=== PATIENT | male | born 1950 | race African-American/Black ===

== ENCOUNTER 2018-05-12 10:06 | Inpatient (IN) ==
[2018-05-12] MEDS ORDERED: PHARMACY CONSULT - DOSE _____ XX SCH ×2 (11:48→17:00)
[2018-05-12] MEDS ORDERED: LASIX IVP ONE (12:05)
[2018-05-12 12:06] LABS: BASOPHILS # (AUTO) 0.1 X10^3/uL (0.0-0.1); BASOPHILS % (AUTO) 0.7 % (0.2-1.0); EOSINOPHILS # (AUTO) 0.1 x10^3/uL (0.0-0.2); HEMATOCRIT 35.3 % (42.0-54.0); HEMOGLOBIN 11.6 g/dL (13.5-18.0); LYMPHOCYTES # (AUTO) 1.8 X10^3/uL (1.3-2.9); LYMPHOCYTES % (AUTO) 14.2 % (21.0-51.0); MEAN CORPUSCULAR HEMOGLOBIN 27.8 pg (27.0-34.0); MEAN CORPUSCULAR HGB CONC 32.9 g/dL (33.0-35.0); MEAN CORPUSCULAR VOLUME 84.3 fL (80.0-100.0); MEAN PLATELET VOLUME 8.4 fL (7.4-11.0); MONOCYTES # (AUTO) 0.9 x10^3/uL (0.3-0.8); MONOCYTES % (AUTO) 7.1 % (0.0-13.0); NEUTROPHILS # (AUTO) 9.7 x10^3/uL (2.2-4.8); PLATELET COUNT 253 X10^3/uL (150.0-450.0); RED BLOOD COUNT 4.18 X10^6/uL (4.7-6.0); RED CELL DISTRIBUTION WIDTH 15.7 % (11.6-16.5); WHITE BLOOD COUNT 12.6 X10^3/uL (3.6-10.0)
[2018-05-12 12:06] LABS: BILIRUBIN,URINE NEGATIVE (NEGATIVE); BLOOD/HEMOGLOBIN,URINE 3+ (NEGATIVE); GLUCOSE, URINE NEGATIVE (NEGATIVE); KETONES,URINE NEGATIVE (NEGATIVE); LEUKOCYTE ESTERASE ,URINE 2+ (NEGATIVE); NITRITES,URINE NEGATIVE (NEGATIVE); PROTEIN,URINE 2+ (NEGATIVE); UROBILINOGEN,URINE 3+ (NORMAL)
[2018-05-12 12:11] LABS: APPEARANCE,URINE CLEAR (CLEAR); COLOR,URINE DARK YELLOW (YELLOW)
[2018-05-12] MEDS: LASIX IVP SCH ×2 (12:11→21:30)
[2018-05-12 12:15] LABS: BACTERIA,URINE TRACE /HPF (NEGATIVE); SQUAMOUS EPITHELIAL CELL,UR MODERATE /HPF (NEGATIVE)
[2018-05-12 12:20] LABS: ALANINE AMINOTRANSFERASE 18 Units/L (12-78); ALBUMIN 2.4 g/dL (3.4-5.0); ALKALINE PHOSPHATASE 90 Units/L (46-116); ASPARTATE AMINO TRANSFERASE 23 Units/L (15-37); BLOOD UREA NITROGEN 13 mg/dL (7-18); CALCIUM 9.1 mg/dL (8.5-10.1); CARBON DIOXIDE 28.3 mmol/L (21-32); CHLORIDE 99 mmol/L (98-107); COR CA(FOR HYPOALB) 10.4 mg/dL (8.5-10.1); COR NA(FOR HYPERGLY) 138 mmol/L (136-145); CREATININE 1.23 mg/dL (0.70-1.30); SODIUM 136 mmol/L (136-145); eGFR NON BLACK RACES > 60 (>60)
--- NOTE | 2018-05-12 12:23 | RAD ---
HISTORY: New onset CHF Study: AP portable chest Comparison: None Technique: AP portable chest Findings: Soft tissues bone detail are normal. Heart size is normal. The airway is normal. There is mild central vascular congestion but no interstitial or alveolar edema or findings of overt CHF IMPRESSION: 1. Mild central vascular congestion but no findings of overt CHF i.e. no pulmonary interstitial or alveolar edema or pleural effusions. Reported By:
[2018-05-12 12:41] LABS: B-TYPE NATRIURETIC PEPTIDE 838 pg/mL (0-79)
[2018-05-12] MEDS: ASPIRIN EC 81 MG PO SCH (13:58)
[2018-05-12] MEDS: ZOVIRAX VIAL 500 MG 1,000 MG in NS 250 ML IV 250 ML IV SCH ×2 (13:58→21:39)
[2018-05-12] MEDS ORDERED: NS 250 ML IV 250 ML IV ONE ×2 (13:59→16:55)
[2018-05-12 15:19] VITALS: BMI 40.1
[2018-05-12] MEDS: TOBREX DROPS AFFEYE SCH ×2 (17:09→21:31)
[2018-05-12] MEDS: ZOSYN VIAL 4.5 GRAMS 4.5 G in NS 100 ML IV + SPIKE MINIBAG* 100 ML IV SCH ×2 (17:10→21:30)
[2018-05-12] MEDS ORDERED: POTASSIUM CHL 40 MEQ/NS 0.45% 500 ML IV PRN (19:02)
[2018-05-12] MEDS ORDERED: POTASSIUM CHL 60 MEQ/NS 0.45% 500 ML IV PRN (19:02)
[2018-05-12] MEDS ORDERED: POTASSIUM CHLORIDE LIQ 20 MEQ UDC PO PRN (19:02)
[2018-05-12] MEDS ORDERED: MICRO K EXTEN CAP 10 MEQ PO PRN (19:02)
[2018-05-12] MEDS ORDERED: K-RIDER 10 MEQ/NS 100 ML 10 MEQ/100 ML BAG IV PRN (19:02)
[2018-05-12] MEDS ORDERED: KLOR-CON PO PRN (19:02)
[2018-05-12] MEDS ORDERED: MAGNESIUM SULFATE 1 GRAM/100 mL PREMIX 1 GM/100 ML BAG IV PRN (19:02)
[2018-05-12] MEDS: SNACK - Diabetic Appropriate PO SCH (20:30)
[2018-05-12] MEDS: LIPITOR TAB 40 MG PO SCH (21:30)
[2018-05-12] MEDS: COREG TAB 12.5 MG PO SCH (21:30)
[2018-05-12] MEDS: HumuLIN R SUBCUT PRN (22:56)
[2018-05-13] MEDS: ZOVIRAX VIAL 500 MG 1,000 MG in NS 250 ML IV 250 ML IV SCH ×3 (05:45→21:06)
--- NOTE | 2018-05-13 06:14 | RAD ---
History: CHF with shortness of breath Study: AP chest Comparison: May 12 Findings: There is mild cardiomegaly as before. There is mild to moderate vascular congestion. There is no obvious effusion. Impression: Unchanged cardiomegaly and vascular congestion Reported By:
[2018-05-13 06:19] LABS: BASOPHILS # (AUTO) 0.1 X10^3/uL (0.0-0.1); BASOPHILS % (AUTO) 0.5 % (0.2-1.0); EOSINOPHILS # (AUTO) 0.1 x10^3/uL (0.0-0.2); EOSINOPHILS % (AUTO) 1.1 % (0.9-2.9); HEMOGLOBIN 10.7 g/dL (13.5-18.0); LYMPHOCYTES # (AUTO) 1.9 X10^3/uL (1.3-2.9); LYMPHOCYTES % (AUTO) 16.7 % (21.0-51.0); MEAN CORPUSCULAR HEMOGLOBIN 27.9 pg (27.0-34.0); MEAN CORPUSCULAR HGB CONC 33.4 g/dL (33.0-35.0); MEAN CORPUSCULAR VOLUME 83.5 fL (80.0-100.0); MEAN PLATELET VOLUME 8.8 fL (7.4-11.0); MONOCYTES # (AUTO) 1.1 x10^3/uL (0.3-0.8); MONOCYTES % (AUTO) 9.7 % (0.0-13.0); NEUTROPHILS # (AUTO) 8.1 x10^3/uL (2.2-4.8); PLATELET COUNT 223 X10^3/uL (150.0-450.0); RED BLOOD COUNT 3.83 X10^6/uL (4.7-6.0); RED CELL DISTRIBUTION WIDTH 15.5 % (11.6-16.5); WHITE BLOOD COUNT 11.2 X10^3/uL (3.6-10.0)
[2018-05-13 06:36] LABS: ALANINE AMINOTRANSFERASE 16 Units/L (12-78); ALBUMIN 2.1 g/dL (3.4-5.0); ALKALINE PHOSPHATASE 81 Units/L (46-116); ASPARTATE AMINO TRANSFERASE 25 Units/L (15-37); BLOOD UREA NITROGEN 14 mg/dL (7-18); CALCIUM 8.5 mg/dL (8.5-10.1); CARBON DIOXIDE 28.4 mmol/L (21-32); CHLORIDE 100 mmol/L (98-107); CREATININE 1.16 mg/dL (0.70-1.30); SODIUM 138 mmol/L (136-145); TOTAL PROTEIN 7.1 g/dL (6.4-8.2); eGFR NON BLACK RACES > 60 (>60)
[2018-05-13] MEDS: ZOSYN VIAL 4.5 GRAMS 4.5 G in NS 100 ML IV + SPIKE MINIBAG* 100 ML IV SCH ×3 (06:44→21:07)
[2018-05-13] MEDS: TOBREX DROPS AFFEYE SCH ×3 (06:46→21:07)
[2018-05-13] MEDS: ASPIRIN EC 81 MG PO SCH (09:26)
[2018-05-13] MEDS: ZESTRIL TAB 40 MG PO SCH (09:26)
[2018-05-13] MEDS: PLAVIX PO SCH (09:27)
[2018-05-13] MEDS: COREG TAB 12.5 MG PO SCH ×2 (09:27→21:07)
[2018-05-13] MEDS: LASIX IVP SCH ×2 (09:27→21:06)
[2018-05-13] MEDS: K-DUR TAB 20 MEQ PO PRN (09:31)
[2018-05-13] MEDS ORDERED: NICOTINE PATCH TD ONE (16:40)
[2018-05-13] MEDS: NICOTINE PATCH TD SCH (17:21)
[2018-05-13] MEDS ORDERED: LEVEMIR SC SCH (21:00)
[2018-05-13] MEDS: LIPITOR TAB 40 MG PO SCH (21:07)
[2018-05-13] MEDS: HumuLIN R SUBCUT PRN (21:08)
[2018-05-13] MEDS: SNACK - Diabetic Appropriate PO SCH (21:08)
[2018-05-14] MEDS: ZOVIRAX VIAL 500 MG 1,000 MG in NS 250 ML IV 250 ML IV SCH ×3 (05:25→22:01)
[2018-05-14] MEDS: ZOSYN VIAL 4.5 GRAMS 4.5 G in NS 100 ML IV + SPIKE MINIBAG* 100 ML IV SCH ×3 (05:25→22:01)
[2018-05-14] MEDS: TOBREX DROPS AFFEYE SCH ×3 (05:27→22:01)
[2018-05-14 06:27] LABS: BASOPHILS # (AUTO) 0.1 X10^3/uL (0.0-0.1); BASOPHILS % (AUTO) 0.6 % (0.2-1.0); EOSINOPHILS # (AUTO) 0.2 x10^3/uL (0.0-0.2); EOSINOPHILS % (AUTO) 1.6 % (0.9-2.9); HEMATOCRIT 31.2 % (42.0-54.0); HEMOGLOBIN 10.4 g/dL (13.5-18.0); LYMPHOCYTES # (AUTO) 2.2 X10^3/uL (1.3-2.9); LYMPHOCYTES % (AUTO) 18.8 % (21.0-51.0); MEAN CORPUSCULAR HGB CONC 33.4 g/dL (33.0-35.0); MEAN CORPUSCULAR VOLUME 83.8 fL (80.0-100.0); MEAN PLATELET VOLUME 8.1 fL (7.4-11.0); MONOCYTES % (AUTO) 8.6 % (0.0-13.0); NEUTROPHILS # (AUTO) 8.1 x10^3/uL (2.2-4.8); NEUTROPHILS % (AUTO) 70.4 % (42.0-75.0); PLATELET COUNT 231 X10^3/uL (150.0-450.0); RED BLOOD COUNT 3.73 X10^6/uL (4.7-6.0); RED CELL DISTRIBUTION WIDTH 15.6 % (11.6-16.5); WHITE BLOOD COUNT 11.5 X10^3/uL (3.6-10.0)
[2018-05-14 06:41] LABS: ALANINE AMINOTRANSFERASE 20 Units/L (12-78); ALBUMIN 2.1 g/dL (3.4-5.0); ALKALINE PHOSPHATASE 73 Units/L (46-116); ASPARTATE AMINO TRANSFERASE 26 Units/L (15-37); BLOOD UREA NITROGEN 12 mg/dL (7-18); CALCIUM 8.6 mg/dL (8.5-10.1); CARBON DIOXIDE 28.2 mmol/L (21-32); CHLORIDE 103 mmol/L (98-107); COR CA(FOR HYPOALB) 10.1 mg/dL (8.5-10.1); CREATININE 1.22 mg/dL (0.70-1.30); SODIUM 141 mmol/L (136-145); TOTAL PROTEIN 7.1 g/dL (6.4-8.2); eGFR NON BLACK RACES > 60 (>60)
--- NOTE | 2018-05-14 07:05 | RAD ---
Examination: Portable AP chest History: SOB Comparison 05/13/2018 Findings: Continued upper normal heart size. The pulmonary vessels remain markedly distended and indistinct and there is a diffuse interstitial process throughout the lungs. No pneumothorax, large pleural effusion demonstrated. Impression: Increasing pulmonary edema. This may be cardiogenic or related to hypervolemia. Reported By:
[2018-05-14] MEDS: ZESTRIL TAB 40 MG PO SCH (09:15)
[2018-05-14] MEDS: ASPIRIN EC 81 MG PO SCH (09:15)
[2018-05-14] MEDS: NICOTINE PATCH TD SCH (09:15)
[2018-05-14] MEDS: LASIX IVP SCH ×2 (09:16→22:00)
[2018-05-14] MEDS: PLAVIX PO SCH (09:16)
[2018-05-14] MEDS: COREG TAB 12.5 MG PO SCH ×2 (09:16→22:00)
[2018-05-14] MEDS: HumuLIN R SUBCUT PRN (16:16)
[2018-05-14] MEDS: K-DUR TAB 20 MEQ PO PRN (16:17)
[2018-05-14] MEDS: SNACK - Diabetic Appropriate PO SCH (21:01)
[2018-05-14] MEDS: LIPITOR TAB 40 MG PO SCH (22:00)
--- NOTE | 2018-05-14 23:38 | PCM.PROG ---
Progress Note - Progress Note for Day of Date of Exam: 05/13/18 - Subjective Subjective: WAS ADMITTED FOR NEW ONSET CHF AND VIRAL CELLULITIS. PATIENT REPORTS THAT WOUNDS AND IRRITATION TO FACE STARTED EARLIER IN THE WEEK. SWELLING TO LOWER EXTREMITIES AND SHORTNESS OF BREATH ALSO STARTED EARLIER IN THE WEEK. PATIENT WAS SEEN IN THE [facility] ER AND DIAGNOSED WITH CONGESTIVE HEART FAILURE. TODAY, HE IS ALERT AND ORIENTED, SITTING ON THE SIDE OF THE BED ON MORNING ROUNDS. HE CONTINUES WITH COMPLAINTS OF SHORTNESS OF BREATH. HE CONTINUES WITH CELLULITIS AND SWELLING OF THE NASAL AREA AND CHEEKS. ON EXAMINATION, HEART IS REGULAR IN RATE AND RHYTHM. BILATERAL LUNGS ARE NOTED WITH DIMINISHED LUNG SOUNDS THROUGHOUT. ABDOMEN IS ROUND, SOFT, AND NON-TENDER WITH NORMAL BOWEL SOUNDS NOTED IN ALL QUADRANTS. BILATERAL LOWER EXTREMITIES CONTINUE WITH 2+ PITTING EDEMA. HIS VITALS THIS MORNING ARE 98.5-75-20-98%-149/96. LABS WERE OBTAINED. ABNORMAL LAB VALUES INCLUDE THE FOLLOWING: WBC 11.2, RBC 3.83, HGB 10.7, HCT 32.0, POTASSIUM 3.4, ALBUMIN 2.1. TODAYS CHEST XRAY REVEALED: Unchanged cardiomegaly and vascular congestion. HE IS CURRENTLY RECEIVING IV LASIX, IV ACYCLOVIR, AND HOME MEDICATIONS WERE RESUMED. TODAY, WE WILL OBTAIN VIRAL CULTURES, HIV PANEL, HERPES PANEL, AND VDRL. OTHERWISE, WE WILL CONTINUE WITH CURRENT PLAN OF CARE AND CONTINUE TO MONITOR PATIENT. - Past Medical Family Social History Past Med/Fam/Surg Hx: No changes since H&P Allergies: Allergies No Known Drug Allergies Allergy (Verified 05/12/18 11:14) - Review of Systems ROS: No change since H&P - Vital Signs and I&O's Vital Signs: Temperature 97.7 F Pulse Rate [Left Brachial] 82 Pulse Rate 87 Respiratory Rate 27 Blood Pressure [Left Arm] 100/50 Blood Pressure 131/62 O2 Sat by Pulse Oximetry 93 Intake and Output: Intake & Output 05/12/18 05/13/18 05/14/18 05/15/18 11:59 11:59 11:59 11:59 Intake Total 1650 / 1650 1710 / 1710 800 / 800 Output Total 1280 / 1280 2600 / 2600 1300 / 1300 Balance 370 / 370 -890 / -890 -500 / -500 - Physical Exam Oriented: Normal Eyes: Normal Ear: Normal Nose: Normal Throat: Normal Respiratory: Generalized, Diminished Cardiovascular: Normal, Irregular Auscultation: Bowel Sounds: Normal Palpation: Normal Tenderness: Normal Skin: Tender, Hot, Wound (FACIAL SWELLING AND CELLULITIS) Musculoskeletal: Normal Psychiatric: Normal Mood Description: Calm Affect: Normal Speech Pattern: Clear, Appropriate - Laboratory and Diagnostics Result Diagrams: 05/14/18 06:07 05/14/18 06:07 Labs: Laboratory WBC 11.5 X10^3/uL (3.6-10.0) H 05/14/18 06:07 RBC 3.73 X10^6/uL (4.7-6.0) L 05/14/18 06:07 Hgb 10.4 g/dL (13.5-18.0) L 05/14/18 06:07 Hct 31.2 % (42.0-54.0) L 05/14/18 06:07 MCV 83.8 fL (80.0-100.0) 05/14/18 06:07 MCH 28.0 pg (27.0-34.0) 05/14/18 06:07 MCHC 33.4 g/dL (33.0-35.0) 05/14/18 06:07 RDW 15.6 % (11.6-16.5) 05/14/18 06:07 Plt Count 231 X10^3/uL (150.0-450.0) 05/14/18 06:07 MPV 8.1 fL (7.4-11.0) 05/14/18 06:07 Neut % (Auto) 70.4 % (42.0-75.0) 05/14/18 06:07 Lymph % (Auto) 18.8 % (21.0-51.0) L 05/14/18 06:07 Alexander % (Auto) 8.6 % (0.0-13.0) 05/14/18 06:07 Eos % (Auto) 1.6 % (0.9-2.9) 05/14/18 06:07 Baso % (Auto) 0.6 % (0.2-1.0) 05/14/18 06:07 Neut # (Auto) 8.1 x10^3/uL (2.2-4.8) H 05/14/18 06:07 Lymph # (Auto) 2.2 X10^3/uL (1.3-2.9) 05/14/18 06:07 Alexander # (Auto) 1.0 x10^3/uL (0.3-0.8) H 05/14/18 06:07 Eos # (Auto) 0.2 x10^3/uL (0.0-0.2) 05/14/18 06:07 Baso # (Auto) 0.1 X10^3/uL (0.0-0.1) 05/14/18 06:07 Absolute Nucleated RBC 0.0 /100WBC 05/14/18 06:07 Sodium 141 mmol/L (136-145) 05/14/18 06:07 Corrected Sodium TNP 05/14/18 06:07 Potassium 3.4 mmol/L (3.5-5.1) L 05/14/18 06:07 Chloride 103 mmol/L (98-107) 05/14/18 06:07 Carbon Dioxide 28.2 mmol/L (21-32) 05/14/18 06:07 BUN 12 mg/dL (7-18) 05/14/18 06:07 Creatinine 1.22 mg/dL (0.70-1.30) 05/14/18 06:07 Est GFR (MDRD) Af Amer > 60 (>60) 05/14/18 06:07 Est GFR (MDRD) Non-Af > 60 (>60) 05/14/18 06:07 Glucose 91 mg/dL (65-99) 05/14/18 06:07 POC Glucose (mg/dL) 154 mg/dL (65-99) H 05/14/18 20:59 Calcium 8.6 mg/dL (8.5-10.1) 05/14/18 06:07 Corrected Calcium 10.1 mg/dL (8.5-10.1) 05/14/18 06:07 Magnesium 1.7 mg/dL (1.7-2.9) 05/12/18 11:58 Total Bilirubin 1.00 mg/dL (0.2-1.0) 05/14/18 06:07 AST 26 Units/L (15-37) 05/14/18 06:07 ALT 20 Units/L (12-78) 05/14/18 06:07 Alkaline Phosphatase 73 Units/L (46-116) 05/14/18 06:07 B-Natriuretic Peptide 1150 pg/mL (0-79) H* 05/13/18 05:15 Total Protein 7.1 g/dL (6.4-8.2) 05/14/18 06:07 Albumin 2.1 g/dL (3.4-5.0) L 05/14/18 06:07 Globulin 5.0 g/dL (2.5-4.5) H 05/14/18 06:07 Albumin/Globulin Ratio 0.4 Ratio (1.1-2.1) L 05/14/18 06:07 Specimen Type Random urine 05/12/18 11:55 Urine Color Dark yellow (YELLOW) 05/12/18 11:55 Urine Appearance Clear (CLEAR) 05/12/18 11:55 Urine pH 5.0 (5.0 - 8.0) 05/12/18 11:55 Ur Specific [place] 1.020 (1.000-1.030) 05/12/18 11:55 Urine Protein 2+ (NEGATIVE) 05/12/18 11:55 Urine Glucose (UA) Negative (NEGATIVE) 05/12/18 11:55 Urine Ketones Negative (NEGATIVE) 05/12/18 11:55 Urine Occult Blood 3+ (NEGATIVE) 05/12/18 11:55 Urine Nitrite Negative (NEGATIVE) 05/12/18 11:55 Urine Bilirubin Negative (NEGATIVE) 05/12/18 11:55 Urine Urobilinogen 3+ (NORMAL) 05/12/18 11:55 Ur Leukocyte Esterase 2+ (NEGATIVE) 05/12/18 11:55 Urine RBC 5-10 /HPF (NONE SEEN) 05/12/18 11:55 Urine WBC 0-2 /HPF (NONE SEEN) 05/12/18 11:55 Ur Squamous Epith Cells Moderate /HPF (NEGATIVE) 05/12/18 11:55 Urine Bacteria Trace /HPF (NEGATIVE) 05/12/18 11:55 Ur Culture Indicated? No/not indicated 05/12/18 11:55 RPR Nonreactive (NONREACTIVE) 05/13/18 11:05 HIV-1 Ab Confirm (Blot) Cancelled 05/13/18 11:05 HIV 1&2 Antibody Screen Cancelled 05/13/18 11:05 VZV Antibody Scrn Cancelled 05/13/18 11:05 VZV IgG Antibody Cancelled 05/13/18 11:05 Viral Cult Prelim Rpt Cancelled 05/13/18 11:05 Viral Cult Final Rpt Cancelled 05/13/18 11:05 Non-Resp Viral Source Cancelled 05/13/18 11:05 - Plan (1) CHF (congestive heart failure) Status: Acute Qualifiers: Heart failure chronicity: acute Plan: IV LASIX, COREG, LISINOPRIL, SUPPLEMENTAL OXYGEN, CONTINUE TO MONTIOR (2) Cellulitis of face Status: Acute Plan: IV ACYCLOVIR, VIRAL CULTURES, CONTINUE TO MONITOR
[2018-05-15] MEDS: ZOVIRAX VIAL 500 MG 1,000 MG in NS 250 ML IV 250 ML IV SCH ×3 (05:44→21:35)
[2018-05-15] MEDS: ZOSYN VIAL 4.5 GRAMS 4.5 G in NS 100 ML IV + SPIKE MINIBAG* 100 ML IV SCH ×3 (05:45→21:35)
[2018-05-15] MEDS: TOBREX DROPS AFFEYE SCH ×3 (05:45→21:34)
--- NOTE | 2018-05-15 05:50 | RAD ---
Examination: Portable AP chest History: SOB Comparison 05/14/2018 Findings: Persistent cardiomegaly. The pulmonary vascularity remains distended and indistinct and there is a diffuse interstitial process throughout the lungs consistent with pulmonary edema. This has improved significantly since 1 day earlier. There is no evidence for developing consolidation, pleural fluid or extrapulmonary air. Impression: Persistent but improving bilateral pulmonary edema. Reported By:
[2018-05-15] MEDS ORDERED: NS 250 ML IV 250 ML IV ONE (06:34)
[2018-05-15 07:07] LABS: BASOPHILS # (AUTO) 0.1 X10^3/uL (0.0-0.1); BASOPHILS % (AUTO) 0.6 % (0.2-1.0); EOSINOPHILS # (AUTO) 0.3 x10^3/uL (0.0-0.2); EOSINOPHILS % (AUTO) 2.6 % (0.9-2.9); HEMATOCRIT 32.8 % (42.0-54.0); HEMOGLOBIN 10.9 g/dL (13.5-18.0); LYMPHOCYTES # (AUTO) 1.6 X10^3/uL (1.3-2.9); LYMPHOCYTES % (AUTO) 13.3 % (21.0-51.0); MEAN CORPUSCULAR HGB CONC 33.3 g/dL (33.0-35.0); MEAN CORPUSCULAR VOLUME 84.2 fL (80.0-100.0); MEAN PLATELET VOLUME 8.7 fL (7.4-11.0); MONOCYTES % (AUTO) 7.7 % (0.0-13.0); NEUTROPHILS # (AUTO) 9.4 x10^3/uL (2.2-4.8); NEUTROPHILS % (AUTO) 75.8 % (42.0-75.0); PLATELET COUNT 225 X10^3/uL (150.0-450.0); RED CELL DISTRIBUTION WIDTH 15.3 % (11.6-16.5); WHITE BLOOD COUNT 12.4 X10^3/uL (3.6-10.0)
[2018-05-15 07:17] LABS: ALANINE AMINOTRANSFERASE 21 Units/L (12-78); ALBUMIN 2.1 g/dL (3.4-5.0); ALKALINE PHOSPHATASE 77 Units/L (46-116); ASPARTATE AMINO TRANSFERASE 32 Units/L (15-37); BLOOD UREA NITROGEN 11 mg/dL (7-18); CALCIUM 8.7 mg/dL (8.5-10.1); CARBON DIOXIDE 28.3 mmol/L (21-32); CHLORIDE 101 mmol/L (98-107); COR CA(FOR HYPOALB) 10.2 mg/dL (8.5-10.1); COR NA(FOR HYPERGLY) 140 mmol/L (136-145); CREATININE 1.24 mg/dL (0.70-1.30); SODIUM 139 mmol/L (136-145); TOTAL PROTEIN 7.5 g/dL (6.4-8.2); eGFR NON BLACK RACES > 60 (>60)
[2018-05-15] MEDS: K-DUR TAB 20 MEQ PO PRN (08:26)
[2018-05-15] MEDS: LASIX IVP SCH ×2 (08:26→21:34)
[2018-05-15] MEDS: PLAVIX PO SCH (08:26)
[2018-05-15] MEDS: ZESTRIL TAB 40 MG PO SCH (08:26)
[2018-05-15] MEDS: COREG TAB 12.5 MG PO SCH ×2 (08:26→21:34)
[2018-05-15] MEDS: ASPIRIN EC 81 MG PO SCH (08:26)
[2018-05-15] MEDS: NICOTINE PATCH TD SCH (08:26)
[2018-05-15] MEDS: HumuLIN R SUBCUT PRN ×2 (11:17→15:52)
[2018-05-15] MEDS: SNACK - Diabetic Appropriate PO SCH (20:30)
[2018-05-15] MEDS: LIPITOR TAB 40 MG PO SCH (21:34)
[2018-05-16] MEDS: ZOVIRAX VIAL 500 MG 1,000 MG in NS 250 ML IV 250 ML IV SCH ×3 (05:07→21:20)
[2018-05-16] MEDS: TOBREX DROPS AFFEYE SCH ×3 (06:25→22:06)
[2018-05-16] MEDS: ZOSYN VIAL 4.5 GRAMS 4.5 G in NS 100 ML IV + SPIKE MINIBAG* 100 ML IV SCH ×3 (06:25→21:21)
[2018-05-16 06:26] LABS: BASOPHILS # (AUTO) 0.1 X10^3/uL (0.0-0.1); BASOPHILS % (AUTO) 0.5 % (0.2-1.0); EOSINOPHILS # (AUTO) 0.3 x10^3/uL (0.0-0.2); EOSINOPHILS % (AUTO) 2.5 % (0.9-2.9); HEMATOCRIT 34.7 % (42.0-54.0); HEMOGLOBIN 11.5 g/dL (13.5-18.0); LYMPHOCYTES # (AUTO) 1.8 X10^3/uL (1.3-2.9); LYMPHOCYTES % (AUTO) 14.9 % (21.0-51.0); MEAN CORPUSCULAR HEMOGLOBIN 27.6 pg (27.0-34.0); MEAN CORPUSCULAR HGB CONC 33.2 g/dL (33.0-35.0); MEAN CORPUSCULAR VOLUME 83.2 fL (80.0-100.0); MEAN PLATELET VOLUME 8.5 fL (7.4-11.0); MONOCYTES % (AUTO) 8.4 % (0.0-13.0); NEUTROPHILS # (AUTO) 8.9 x10^3/uL (2.2-4.8); NEUTROPHILS % (AUTO) 73.7 % (42.0-75.0); PLATELET COUNT 253 X10^3/uL (150.0-450.0); RED BLOOD COUNT 4.18 X10^6/uL (4.7-6.0); RED CELL DISTRIBUTION WIDTH 15.5 % (11.6-16.5); WHITE BLOOD COUNT 12.2 X10^3/uL (3.6-10.0)
[2018-05-16 06:40] LABS: ALANINE AMINOTRANSFERASE 24 Units/L (12-78); ALBUMIN 2.3 g/dL (3.4-5.0); ALKALINE PHOSPHATASE 88 Units/L (46-116); ASPARTATE AMINO TRANSFERASE 30 Units/L (15-37); BLOOD UREA NITROGEN 12 mg/dL (7-18); CALCIUM 8.9 mg/dL (8.5-10.1); CARBON DIOXIDE 28.7 mmol/L (21-32); CHLORIDE 100 mmol/L (98-107); COR CA(FOR HYPOALB) 10.3 mg/dL (8.5-10.1); COR NA(FOR HYPERGLY) 139 mmol/L (136-145); CREATININE 1.31 mg/dL (0.70-1.30); SODIUM 138 mmol/L (136-145); eGFR NON BLACK RACES 58 (>60)
[2018-05-16 07:03] LABS: B-TYPE NATRIURETIC PEPTIDE 813 pg/mL (0-79)
--- NOTE | 2018-05-16 07:15 | RAD ---
HISTORY: Shortness of breath Study: Chest AP portable Comparison: 05/15/2018, 05/14/2018 Findings: The heart remains enlarged. Mild pulmonary venous congestion is present. No definite interstitial or alveolar edema is present on today's examination. No pleural effusions are identified. The bony thorax is unremarkable. IMPRESSION: Moderate cardiomegaly with pulmonary venous congestion Resolution of the previously noted interstitial edema Reported By:
[2018-05-16] MEDS: ZESTRIL TAB 40 MG PO SCH (09:31)
[2018-05-16] MEDS: NICOTINE PATCH TD SCH (09:32)
[2018-05-16] MEDS: COREG TAB 12.5 MG PO SCH ×2 (09:32→21:22)
[2018-05-16] MEDS: ASPIRIN EC 81 MG PO SCH (09:32)
[2018-05-16] MEDS: LASIX IVP SCH ×2 (09:32→21:20)
[2018-05-16] MEDS: PLAVIX PO SCH (09:37)
[2018-05-16] MEDS ORDERED: XYLOCAINE 1 % (PLAIN) ONE (10:50)
[2018-05-16] MEDS: HumuLIN R SUBCUT PRN ×3 (12:03→21:21)
[2018-05-16] MEDS ORDERED: NS 250 ML IV 250 ML IV ONE ×2 (13:59→14:08)
--- NOTE | 2018-05-16 16:09 | OR.GENERIC ---
Post-Op Note Generic - Post-Op Note Operative Report: multiple punch Bx from skin lesions on the Lt side of face , lower lip and Lt leg were obtained and sent to the lab . R/O viral lesions or 2ed Syphylis .. mild bleeding was controlled with local pressure .
--- NOTE | 2018-05-16 21:08 | PCM.PROG ---
Progress Note - Progress Note for Day of Date of Exam: 05/14/18 - Subjective Subjective: WAS ADMITTED FOR NEW ONSET CHF AND VIRAL CELLULITIS. TODAY, HE IS ALERT AND ORIENTED, SITTING ON THE SIDE OF THE BED ON MORNING ROUNDS. HE CONTINUES WITH COMPLAINTS OF SHORTNESS OF BREATH. HE CONTINUES WITH CELLULITIS AND SWELLING OF THE NASAL AREA AND CHEEKS. ON EXAMINATION, HEART IS REGULAR IN RATE AND RHYTHM. BILATERAL LUNGS ARE NOTED WITH DIMINISHED LUNG SOUNDS THROUGHOUT. ABDOMEN IS ROUND, SOFT, AND NON-TENDER WITH NORMAL BOWEL SOUNDS NOTED IN ALL QUADRANTS. BILATERAL LOWER EXTREMITIES CONTINUE WITH 1+ PITTING EDEMA. HIS VITALS THIS MORNING ARE 98.5-70-12-94%-119/59. LABS WERE OBTAINED. ABNORMAL LAB VALUES INCLUDE THE FOLLOWING: WBC 11.5, RBC 3.73, HGB 10.4, HCT 31.2, POTASSIUM 3.4, ALBUMIN 2.1, GLOBULIN 5.0. CULTURES ARE PENDING. TODAYS CHEST XRAY REVEALED: Increasing pulmonary edema. This may be cardiogenic or related to hypervolemia. HE IS CURRENTLY RECEIVING IV LASIX, IV ACYCLOVIR, AND HOME MEDICATIONS WERE RESUMED. TODAY, WE WILL CONTINUE WITH CURRENT PLAN OF CARE AND CONTINUE TO MONITOR PATIENT. - Past Medical Family Social History Past Med/Fam/Surg Hx: No changes since H&P Allergies: Allergies No Known Drug Allergies Allergy (Verified 05/12/18 11:14) - Review of Systems ROS: No change since H&P - Vital Signs and I&O's Vital Signs: Temperature 98.3 F Pulse Rate [Left Brachial] 82 Pulse Rate 82 Respiratory Rate 25 Blood Pressure [Left Arm] 100/50 Blood Pressure 143/98 O2 Sat by Pulse Oximetry 97 Intake and Output: Intake & Output 05/14/18 05/15/18 05/16/18 05/17/18 11:59 11:59 11:59 11:59 Intake Total 1710 / 1710 1750 / 1750 2145 / 2145 2650 / 2650 Output Total 2600 / 2600 3550 / 3550 3400 / 3400 1000 / 1000 Balance -890 / -890 -1800 / -1800 -1255 / -1255 1650 / 1650 - Physical Exam Oriented: Normal Eyes: Normal Ear: Normal Nose: Normal Throat: Normal Respiratory: Generalized, Diminished Cardiovascular: Normal, Irregular Auscultation: Bowel Sounds: Normal Palpation: Normal Tenderness: Normal Skin: Tender, Hot, Wound (FACIAL SWELLING AND CELLULITIS) Musculoskeletal: Normal Psychiatric: Normal Mood Description: Calm Affect: Normal Speech Pattern: Clear, Appropriate - Laboratory and Diagnostics Result Diagrams: 05/16/18 05:07 05/16/18 05:07 Labs: Laboratory WBC 12.2 X10^3/uL (3.6-10.0) H 05/16/18 05:07 RBC 4.18 X10^6/uL (4.7-6.0) L 05/16/18 05:07 Hgb 11.5 g/dL (13.5-18.0) L 05/16/18 05:07 Hct 34.7 % (42.0-54.0) L 05/16/18 05:07 MCV 83.2 fL (80.0-100.0) 05/16/18 05:07 MCH 27.6 pg (27.0-34.0) 05/16/18 05:07 MCHC 33.2 g/dL (33.0-35.0) 05/16/18 05:07 RDW 15.5 % (11.6-16.5) 05/16/18 05:07 Plt Count 253 X10^3/uL (150.0-450.0) 05/16/18 05:07 MPV 8.5 fL (7.4-11.0) 05/16/18 05:07 Neut % (Auto) 73.7 % (42.0-75.0) 05/16/18 05:07 Lymph % (Auto) 14.9 % (21.0-51.0) L 05/16/18 05:07 Miner % (Auto) 8.4 % (0.0-13.0) 05/16/18 05:07 Eos % (Auto) 2.5 % (0.9-2.9) 05/16/18 05:07 Baso % (Auto) 0.5 % (0.2-1.0) 05/16/18 05:07 Neut # (Auto) 8.9 x10^3/uL (2.2-4.8) H 05/16/18 05:07 Lymph # (Auto) 1.8 X10^3/uL (1.3-2.9) 05/16/18 05:07 Miner # (Auto) 1.0 x10^3/uL (0.3-0.8) H 05/16/18 05:07 Eos # (Auto) 0.3 x10^3/uL (0.0-0.2) H 05/16/18 05:07 Baso # (Auto) 0.1 X10^3/uL (0.0-0.1) 05/16/18 05:07 Absolute Nucleated RBC 0.0 /100WBC 05/16/18 05:07 Sodium 138 mmol/L (136-145) 05/16/18 05:07 Corrected Sodium 139 mmol/L (136-145) 05/16/18 05:07 Potassium 3.4 mmol/L (3.5-5.1) L 05/16/18 05:07 Chloride 100 mmol/L (98-107) 05/16/18 05:07 Carbon Dioxide 28.7 mmol/L (21-32) 05/16/18 05:07 BUN 12 mg/dL (7-18) 05/16/18 05:07 Creatinine 1.31 mg/dL (0.70-1.30) H 05/16/18 05:07 Est GFR (MDRD) Af Amer > 60 (>60) 05/16/18 05:07 Est GFR (MDRD) Non-Af 58 (>60) L 05/16/18 05:07 Glucose 158 mg/dL (65-99) H 05/16/18 05:07 POC Glucose (mg/dL) 183 mg/dL (65-99) H 05/16/18 21:05 Calcium 8.9 mg/dL (8.5-10.1) 05/16/18 05:07 Corrected Calcium 10.3 mg/dL (8.5-10.1) H 05/16/18 05:07 Magnesium 1.7 mg/dL (1.7-2.9) 05/12/18 11:58 Total Bilirubin 1.00 mg/dL (0.2-1.0) 05/16/18 05:07 AST 30 Units/L (15-37) 05/16/18 05:07 ALT 24 Units/L (12-78) 05/16/18 05:07 Alkaline Phosphatase 88 Units/L (46-116) 05/16/18 05:07 B-Natriuretic Peptide 813 pg/mL (0-79) H* 05/16/18 05:07 Total Protein 8.0 g/dL (6.4-8.2) 05/16/18 05:07 Albumin 2.3 g/dL (3.4-5.0) L 05/16/18 05:07 Globulin 5.7 g/dL (2.5-4.5) H 05/16/18 05:07 Albumin/Globulin Ratio 0.4 Ratio (1.1-2.1) L 05/16/18 05:07 Specimen Type Random urine 05/12/18 11:55 Urine Color Dark yellow (YELLOW) 05/12/18 11:55 Urine Appearance Clear (CLEAR) 05/12/18 11:55 Urine pH 5.0 (5.0 - 8.0) 05/12/18 11:55 Ur Specific [place] 1.020 (1.000-1.030) 05/12/18 11:55 Urine Protein 2+ (NEGATIVE) 05/12/18 11:55 Urine Glucose (UA) Negative (NEGATIVE) 05/12/18 11:55 Urine Ketones Negative (NEGATIVE) 05/12/18 11:55 Urine Occult Blood 3+ (NEGATIVE) 05/12/18 11:55 Urine Nitrite Negative (NEGATIVE) 05/12/18 11:55 Urine Bilirubin Negative (NEGATIVE) 05/12/18 11:55 Urine Urobilinogen 3+ (NORMAL) 05/12/18 11:55 Ur Leukocyte Esterase 2+ (NEGATIVE) 05/12/18 11:55 Urine RBC 5-10 /HPF (NONE SEEN) 05/12/18 11:55 Urine WBC 0-2 /HPF (NONE SEEN) 05/12/18 11:55 Ur Squamous Epith Cells Moderate /HPF (NEGATIVE) 05/12/18 11:55 Urine Bacteria Trace /HPF (NEGATIVE) 05/12/18 11:55 Ur Culture Indicated? No/not indicated 05/12/18 11:55 RPR Nonreactive (NONREACTIVE) 05/13/18 11:05 HIV-1 Ab Confirm (Blot) Cancelled 05/13/18 11:05 HIV 1&2 Antibody Screen Cancelled 05/13/18 11:05 VZV Antibody Scrn Rubble Placer 05/13/18 11:05 VZV IgG Antibody Cancelled 05/13/18 11:05 Viral Cult Prelim Rpt Cancelled 05/13/18 11:05 Viral Cult Final Rpt Cancelled 05/13/18 11:05 Non-Resp Viral Source Cancelled 05/13/18 11:05 - Plan (1) CHF (congestive heart failure) Status: Acute Qualifiers: Heart failure chronicity: acute Plan: IV LASIX, COREG, LISINOPRIL, SUPPLEMENTAL OXYGEN, CONTINUE TO MONTIOR (2) Cellulitis of face Status: Acute Plan: IV ACYCLOVIR, VIRAL CULTURES, CONTINUE TO MONITOR
[2018-05-16] MEDS: LIPITOR TAB 40 MG PO SCH (21:22)
[2018-05-16] MEDS: SNACK - Diabetic Appropriate PO SCH (21:22)
[2018-05-17] MEDS: TOBREX DROPS AFFEYE SCH (05:10)
[2018-05-17] MEDS: ZOVIRAX VIAL 500 MG 1,000 MG in NS 250 ML IV 250 ML IV SCH (05:10)
[2018-05-17] MEDS: ZOSYN VIAL 4.5 GRAMS 4.5 G in NS 100 ML IV + SPIKE MINIBAG* 100 ML IV SCH (05:10)
[2018-05-17 06:45] LABS: ALANINE AMINOTRANSFERASE 24 Units/L (12-78); ALBUMIN 2.3 g/dL (3.4-5.0); ALKALINE PHOSPHATASE 81 Units/L (46-116); ASPARTATE AMINO TRANSFERASE 34 Units/L (15-37); BLOOD UREA NITROGEN 13 mg/dL (7-18); CALCIUM 9.2 mg/dL (8.5-10.1); CARBON DIOXIDE 29.4 mmol/L (21-32); CHLORIDE 100 mmol/L (98-107); COR CA(FOR HYPOALB) 10.6 mg/dL (8.5-10.1); COR NA(FOR HYPERGLY) 139 mmol/L (136-145); CREATININE 1.36 mg/dL (0.70-1.30); SODIUM 138 mmol/L (136-145); TOTAL PROTEIN 8.2 g/dL (6.4-8.2); eGFR NON BLACK RACES 56 (>60)
[2018-05-17 06:46] LABS: BASOPHILS # (AUTO) 0.1 X10^3/uL (0.0-0.1); BASOPHILS % (AUTO) 0.5 % (0.2-1.0); EOSINOPHILS # (AUTO) 0.3 x10^3/uL (0.0-0.2); EOSINOPHILS % (AUTO) 2.2 % (0.9-2.9); HEMATOCRIT 34.4 % (42.0-54.0); HEMOGLOBIN 11.4 g/dL (13.5-18.0); LYMPHOCYTES # (AUTO) 2.2 X10^3/uL (1.3-2.9); MEAN CORPUSCULAR HEMOGLOBIN 27.5 pg (27.0-34.0); MEAN CORPUSCULAR VOLUME 83.3 fL (80.0-100.0); MEAN PLATELET VOLUME 8.7 fL (7.4-11.0); MONOCYTES # (AUTO) 1.2 x10^3/uL (0.3-0.8); MONOCYTES % (AUTO) 9.2 % (0.0-13.0); NEUTROPHILS # (AUTO) 9.8 x10^3/uL (2.2-4.8); NEUTROPHILS % (AUTO) 72.1 % (42.0-75.0); PLATELET COUNT 258 X10^3/uL (150.0-450.0); RED BLOOD COUNT 4.13 X10^6/uL (4.7-6.0); RED CELL DISTRIBUTION WIDTH 15.3 % (11.6-16.5); WHITE BLOOD COUNT 13.6 X10^3/uL (3.6-10.0)
[2018-05-17] MEDS: COREG TAB 12.5 MG PO SCH (09:05)
[2018-05-17] MEDS: ASPIRIN EC 81 MG PO SCH (09:05)
[2018-05-17] MEDS: LASIX IVP SCH (09:05)
[2018-05-17] MEDS: ZESTRIL TAB 40 MG PO SCH (09:05)
[2018-05-17] MEDS: PLAVIX PO SCH (09:06)
[2018-05-17] MEDS: NICOTINE PATCH TD SCH (09:08)
[2018-05-17 09:51] VITALS: BP 120/61
[2018-05-17] MEDS ORDERED: GENTAMICIN TOPICAL OINT TOP SCH (11:00)
[2018-05-18 06:45] LABS: VARICELLA ZOSTER IGG 3867
== END 2018-05-17 13:45 | disposition home or self-care (01) | DRG 292 ==
LOC: OBS 11:23 → ICU 12:32
PROVIDERS: ADMIT Internal Medicine; ATTEND Internal Medicine
DX: I50.9 Heart failure, unspecified; I10 Essential (primary) hypertension; E11.65 Type 2 diabetes mellitus with hyperglycemia; L30.8 Other specified dermatitis; L03.319 Cellulitis of trunk, unspecified; R60.0 Localized edema; L03.116 Cellulitis of left lower limb; R06.02 Shortness of breath; L03.211 Cellulitis of face
CPT/HCPCS: 36415; 71010; 71045; 80053; 81001; 83735; 83880; 85025; 86592; 86701; 86703; 86787; 87252; 93306; A4216; A4222; J0133; J1815; J1940; J2543; J7050